=== PATIENT | male | born 1985 | race Caucasian/White ===

== ENCOUNTER 2020-12-10 18:47 | Inpatient (IN) | payer SELFPAY ==
[~2020-12-10] VITALS: Ht 167.6 cm; Wt 67.0 kg
[2020-12-10] MEDS ORDERED: IV NORMAL SALINE 1000ML BAG 1,000 ML IV ONE ×2 (19:00→20:45)
[2020-12-10 19:09] LABS: BASO # 0.2 x10^3/uL (0.0-0.2); BASO % 1 % (0-3); EOS # 0.1 x10^3/uL (0.0-0.7); EOS % 0 % (0-3); HEMATOCRIT 46.3 % (39.0-53.0); LYMPH % 57 % (24-48); MEAN CORPUSCULAR HEMOGLOBIN 34 pg (25-35); MEAN CORPUSCULAR HGB CONC 35 g/dL (31-37); MEAN CORPUSCULAR VOLUME 98 fL (79-100); MONO # 1.4 x10^3/uL (0.0-1.1); MONO % 7 % (0-9); NEUT # 6.7 x10^3/uL (1.8-7.7); NEUT % 35 % (31-73); PLATELET COUNT 391 x10^3/uL (140-400); RED BLOOD COUNT 4.74 x10^6/uL (4.30-5.70); RED CELL DISTRIBUTION WIDTH 13.1 % (11.5-14.5); WHITE BLOOD COUNT 19.4 x10^3/uL (4.0-11.0)
[2020-12-10 19:38] LABS: ACETAMIN < 2 mcg/ml (10-30); SALIC < 2.8 mg/dL (2.8-20.0)
[2020-12-10 19:40] LABS: ALBUMIN 4.2 g/dL (3.4-5.0); ALBUMIN/GLOBULIN RATIO 1.2 (1.0-1.7); CALCIUM 8.6 mg/dL (8.5-10.1); CREATININE 1.1 mg/dL (0.7-1.3); GFR 75.3; POTASSIUM 3.4 mmol/L (3.5-5.1); TOTAL BILIRUBIN 0.3 mg/dL (0.2-1.0); TOTAL PROTEIN 7.8 g/dL (6.4-8.2)
--- NOTE | 2020-12-10 19:52 | PHYS DOC ---
General Adult EDM: Chief Complaint: SUBSTANCE ABUSE HPI: HPI: Patient is a 35 year old male who presents with who states that tonight he took a shot of THC because the glass broke and he did not wanted to waste. He is h aving palpitations and in the ED his heart rate is in the 130s. Patient denies chest pain, shortness of air, abdominal pain, dizziness, headache, nausea, vomiting, diarrhea, focal weakness, numbness or tingling. He denies any pain at this time. He does admit to drinking alcohol. Review of Systems: Review of Systems: Constitutional: Denies fever or chills. [] Eyes: Denies change in visual acuity. [] HENT: Denies nasal congestion or sore throat. [] Respiratory: Denies cough or shortness of breath. [] Cardiovascular: Denies chest pain or edema. + Palpitations [] GI: Denies abdominal pain, nausea, vomiting, bloody stools or diarrhea. [] : Denies dysuria. [] Musculoskeletal: Denies back pain or joint pain. [] Integument: Denies rash. [] Neurologic: Denies headache, focal weakness or sensory changes. [] Endocrine: Denies polyuria or polydipsia. [] Lymphatic: Denies swollen glands. [] Psychiatric: Denies depression or anxiety. [] Heart Score: C/O Chest Pain: No Risk Factors: Risk Factors: DM, Current or recent (<one month) smoker, HTN, HLP, family history of CAD, obesity. Risk Scores: Score 0 - 3: 2.5% MACE over next 6 weeks - Discharge Home Score 4 - 6: 20.3% MACE over next 6 weeks - Admit for Clinical Observation Score 7 - 10: 72.7% MACE over next 6 weeks - Early Invasive Strategies Current Medications: Current Medications Medications (Trade) Dose Ordered Sig/Karon Start Time Stop Time Status Last Admin Dose Admin Sodium Chloride 1,000 ml @ 1,000 mls/hr 1X ONCE 12/10/20 19:00 12/10/20 19:59 12/10/20 19:20 1,000 MLS/HR Allergies: Allergies: Allergies Coded Allergies Type Severity Reaction Last Updated Verified No Known Drug Allergies 12/10/20 No Physical Exam: PE: Constitutional: Well developed, well nourished, no acute distress, non-toxic appearance. [] HENT: Normocephalic, atraumatic, bilateral external ears normal, oropharynx moist, no oral exudates, nose normal. [] Eyes: PERRLA, EOMI, conjunctiva normal, no discharge. [] Neck: Normal range of motion, no tenderness, supple, no stridor. [] Cardiovascular:Heart rate tachycardia regular rhythm, no murmur [] Lungs & Thorax: Bilateral breath sounds clear to auscultation [] Abdomen: Bowel sounds normal, soft, no tenderness, no masses, no pulsatile masses. [] Skin: Warm, dry, no erythema, no rash. [] Back: No tenderness, no CVA tenderness. [] Extremities: No tenderness, no cyanosis, no clubbing, ROM intact, no edema. [] Neurologic: Alert and oriented X 3, normal motor function, normal sensory func tion, no focal deficits noted. [] Psychologic: Affect normal, judgement normal, mood normal. [] Current Patient Data: Labs: Laboratory Tests Test 12/10/20 18:55 White Blood Count 19.4 x10^3/uL (4.0-11.0) H Red Blood Count 4.74 x10^6/uL (4.30-5.70) Hemoglobin 16.0 g/dL (13.0-17.5) Hematocrit 46.3 % (39.0-53.0) Mean Corpuscular Volume 98 fL (79-100) Mean Corpuscular Hemoglobin 34 pg (25-35) Mean Corpuscular Hemoglobin Concent 35 g/dL (31-37) Red Cell Distribution Width 13.1 % (11.5-14.5) Platelet Count 391 x10^3/uL (140-400) Neutrophils (%) (Auto) 35 % (31-73) Lymphocytes (%) (Auto) 57 % (24-48) H Monocytes (%) (Auto) 7 % (0-9) Eosinophils (%) (Auto) 0 % (0-3) Basophils (%) (Auto) 1 % (0-3) Neutrophils # (Auto) 6.7 x10^3/uL (1.8-7.7) Lymphocytes # (Auto) 11.0 x10^3/uL (1.0-4.8) H Monocytes # (Auto) 1.4 x10^3/uL (0.0-1.1) H Eosinophils # (Auto) 0.1 x10^3/uL (0.0-0.7) Basophils # (Auto) 0.2 x10^3/uL (0.0-0.2) Platelet Estimate Pending Sodium Level 141 mmol/L (136-145) Potassium Level 3.4 mmol/L (3.5-5.1) L Chloride Level 103 mmol/L (98-107) Carbon Dioxide Level 26 mmol/L (21-32) Anion Gap 12 (6-14) Blood Urea Nitrogen 19 mg/dL (8-26) Creatinine 1.1 mg/dL (0.7-1.3) Estimated GFR (Cockcroft-Gault) 75.3 BUN/Creatinine Ratio 17 (6-20) Glucose Level 120 mg/dL (70-99) H Calcium Level 8.6 mg/dL (8.5-10.1) Total Bilirubin 0.3 mg/dL (0.2-1.0) Aspartate Amino Transferase (AST) 161 U/L (15-37) H Alanine Aminotransferase (ALT) 245 U/L (16-63) H Alkaline Phosphatase 99 U/L (46-116) Troponin I Quantitative < 0.017 ng/mL (0.000-0.055) Total Protein 7.8 g/dL (6.4-8.2) Albumin 4.2 g/dL (3.4-5.0) Albumin/Globulin Ratio 1.2 (1.0-1.7) Salicylates Level < 2.8 mg/dL (2.8-20.0) L Salicylate Last Dose Date Salicylate Last Dose Time Acetaminophen Level < 2 mcg/ml (10-30) L Acetaminophen Last Dose Date Acetaminophen Last Dose Time Ethyl Alcohol Level 267 mg/dL (0-10) H Laboratory Tests 12/10/20 18:55 Laboratory Tests 12/10/20 18:55 EKG: EK and read by Dr. Dougherty as sinus tachycardia no STEMI Radiology/Procedures: Radiology/Procedures: [] Impression: [facility] [address] [place] [address] IMAGING REPORT Signed PATIENT: YARITZA HOPKINSCCOUNT: [id number] : 1985 LOCATION: ER AGE: 35 SEX: M EXAM STATUS: PRE ER ORD. PHYSICIAN: SINDY RODRIGUES APRN REASON: tachycardia PROCEDURE: PORTABLE CHEST 1V XR CHEST 1V CLINICAL INDICATIONS: Tachycardia COMPARISON: None available. Findings: No acute lung infiltrate or pleural effusion or pulmonary edema or lung mass or pneumothorax is seen. The heart size, pulmonary vasculature, mediastinum and both layton are unremarkable. IMPRESSION: No acute radiographic abnormality is seen. Electronically signed by: Nicolasa Clements MD (12/10/2020 8:03 PM) [id number] DICTATED and SIGNED BY: NICOLASA CLEMENTS MD DATE: 12/10/[id number] 0 [facility] [address] [place] [address] IMAGING REPORT Signed PATIENT: YARITZA HOPKINSCCOUNT: [id number] : 1985 LOCATION: ED HOLD AGE: 35 SEX: M EXAM STATUS: ADM IN ORD. PHYSICIAN: SINDY RODRIGUES APRN REASON: sepsis, elevated liver enzymes, OMNI 300 75 ML IV PROCEDURE: CT ABD PELV W/ IV CONTRST ONLY CT abdomen pelvis with contrast dated 12/10/2020. No comparison available. CLINICAL INDICATION: Sepsis and elevated liver enzymes. TECHNIQUE: Contiguous axial imaging the abdomen pelvis performed after the administration of 75 cc Omnipaque 300. One or more of the following individualized dose reduction techniques were utilized for this examination: 1. Automated exposure control 2. Adjustment of the mA and/or kV according to patient size 3. Use of iterative reconstruction technique FINDINGS: Limited images of lung bases show patchy and linear opacity in the dependent lower lobes. Heart size within normal limits. No pleural or pericardial effusion. Liver is of mild low density suggesting fatty infiltration. No apparent mass. There is some layering hyperdensity in the gallbladder suggestive of sludge. No calcific stone. Spleen is upper limits of normal in size. Pancreas, adrenal glands and kidneys are unremarkable. No hydronephrosis. Unopacified GI tract normal in caliber and contour. No focal bowel wall thickening. The appendix is normal in caliber. No ascites or lymphadenopathy. Abdominal aorta normal in caliber. Small periumbilical ventral hernia containing only fat. Images of pelvis show mildly distended urinary bladder. The prostate gland normal in size. No free fluid or pelvic lymphadenopathy. IMPRESSION: 1. No acute abnormality of abdomen or pelvis. Normal appendix. 2. Mild fatty infiltration of the liver. 3. Sludge-filled gallbladder. 4. Mild patchy increased density at both lung bases, atelectasis versus early pneumonia. Electronically signed by: Chapito Uriarte MD (12/11/2020 12:11 AM) [facility] [place] and SIGNED BY: CHAPITO URIARTE MD DATE: 12/11/20 [id number] [facility] [address] [place], [place] [id number] IMAGING REPORT Signed PATIENT: YARITZA HOPKINSCCOUNT: [id number] : 1985 LOCATION: ER AGE: 35 SEX: M EXAM STATUS: PRE ER ORD. PHYSICIAN: SINDY RODRIGUES APRN REASON: tachycardia PROCEDURE: PORTABLE CHEST 1V XR CHEST 1V CLINICAL INDICATIONS: Tachycardia COMPARISON: None available. Findings: No acute lung infiltrate or pleural effusion or pulmonary edema or lung mass or pneumothorax is seen. The heart size, pulmonary vasculature, mediastinum and both layton are unremarkable. IMPRESSION: No acute radiographic abnormality is seen. Electronically signed by: Nicolasa Clements MD (12/10/2020 8:03 PM) [id number] DICTATED and SIGNED BY: NICOLASA CLEMENTS MD DATE: 12/10/[id number] 0 Course & Med Decision Making: Course & Med Decision Making Pertinent Labs and Imaging studies reviewed. (See chart for details) COVID-19 CRITERIA: The patient was evaluated during the global COVID-19 pandemic, and that diagnosis was suspected/considered upon their initial presentation. Their evaluation, treatment and testing was consistent with current guidelines for patients who present with complaints or symptoms that may be related to COVID-19. See HPI. I have called and spoken to poison control who states to basically just observe the patient. Alert and oriented x4 but is drowsy. Speaks in full clear sentences. Lungs are clear all station all lobes. Skin pink warm and dry. EKG shows sinus tachycardia. Patient denies any pain, back pain, neck pain. He has full range of motion of his neck. White blood cell count elevated. Alcohol level is 267. Patient took the shot of THC at 1800 tonight. Lactic acid is 4.5. Patient is given 2 L normal saline and some Zosyn. Patient is admitted to Dr. Reardon. [] Evelia Disclaimer: Evelia Disclaimer: This electronic medical record was generated, in whole or in part, using a voice recognition dictation system. COVID-19 Patient Risks: Age 65 or older: No Sign of co-morbidity: Yes Exp to person + for COVID: No Exp to PUI: No Travel from affected area: No Lower respiratory symptoms: No Fever: No Other: Yes (SEPTIC) PPE Use: Full PPE with N95 mask or PAPR: Yes Date and Time of Reassessment Date: Dec 10, 2020 Time: 21:34 Fluid Challenge Is the fluid challenge complet: No IBW Target Volume Used: No BMI > 30: No Vital Signs Vital Signs: Vital Signs Date Time Temp Pulse Resp B/P (MAP) Pulse Ox O2 Delivery O2 Flow Rate FiO2 12/10/20 18:47 98.5 133 16 147/67 (93) 95 Room Air 98.5 Temperature Source: Oral Respirations Respiratory Effort: Normal Respiratory Pattern: Normal Cardiovascular Pulse Rhythm: Regular Heart: Nml rate, reg. rhythm Lung Sounds Breath Sounds: Clear Capillary Refil Capillary Refill: Rt Hand < 3 seconds Peripheral Pulse Pulse Location: Radial Pulse Strength: Normal (2+) Pulse Assessment Method: Monitor Integumentary Skin: Warm Skin Moisture: Dry Skin Turgor: Normal Skin Color: warm Fingernail Color: WNL Departure Departure Impression: Primary Impression: Tetrahydrocannabinol (THC) dependence Additional Impressions: Alcohol intoxication Qualified Codes: F10.920 - Alcohol use, unspecified with intoxication, uncomplicated Sepsis Qualified Codes: A41.9 - Sepsis, unspecified organism Disposition: ADMITTED INPATIENT Admitting Physician: DYANA Condition: STABLE SINDY RODRIGUES APRN Dec 10, 2020 19:52
--- NOTE | 2020-12-10 20:01 | EKG ---
[facility] [address] [place] [address] Test Date: 2020-12-10 Test Time: 18:51:55 Pat Name: OSCAR HOPKINS Department: Room: Gender: M [employer]argo Worker: : 1985 Requested By: SINDY RODRIGUES Order Number: [id number] Reading MD: Measurements Intervals [place] Rate: 143 P: 241 TX: 118 QRS: 49 QRSD: 86 T: 51 QT: 276 QTc: 431 Interpretive Statements SINUS TACHYCARDIA OTHERWISE NORMAL ECG RI6.02 No previous ECG available for comparison
--- NOTE | 2020-12-10 20:05 | RAD ---
XR CHEST 1V CLINICAL INDICATIONS: Tachycardia COMPARISON: None available. Findings: No acute lung infiltrate or pleural effusion or pulmonary edema or lung mass or pneumothora x is seen. The heart size, pulmonary vasculature, mediastinum and both layton are unremarkable. IMPRESSION: No acute radiographic abnormality is seen. Electronically signed by: Quinton Clements MD (12/10/2020 8:03 PM) [id number]
[2020-12-10 20:14] LABS: % ATYL 4 % (0-0); % LYMPHS 59 % (24-48); % MONOS 4 % (0-10); % SEGS 33 % (35-66)
[2020-12-10 20:15] LABS: PLT ESTIMATE ADEQUATE (ADEQUATE)
[2020-12-10] MEDS ORDERED: PIPERACILLIN/TAZOBACTAM 3.375 GM in IV NORMAL SALINE 50ML 50 ML IV ONE (20:45)
[2020-12-10 20:50] LABS: BILIRUBIN,URINE NEGATIVE (NEG); CLARITY,URINE CLEAR; COLOR,URINE YELLOW; NITRITE,URINE NEGATIVE (NEG); PH,URINE 5.5 (<5.0-8.0); PROTEIN,URINE NEGATIVE (NEG-TRACE); UROBILINOGEN,URINE 0.2 mg/dL (0.2 mg/dL)
[2020-12-10 20:59] LABS: BARBITURATES NEG (NEG); BENZODIAZEPINES NEG (NEG); CANNABINOIDS POS (NEG); COCAINE NEG (NEG); METHADONE NEG (NEG); OPIATES NEG (NEG); PHENCYCLIDINE NEG (NEG)
[2020-12-10 21:00] LABS: AMPHETAMINE/METHAMPHETAMINE NEG (NEG)
[2020-12-10 21:03] LABS: RBC,URINE OCC /HPF (0-2)
[2020-12-10 21:04] LABS: BACTERIA,URINE 0 /HPF (0-FEW)
[2020-12-10] MEDS ORDERED: CONTRAST GIVEN. MC PRN (22:30)
[2020-12-10] MEDS ORDERED: IOHEXOL 300 MG/ML 100ML VIAL. IV ONE (23:00)
[2020-12-10 23:30] LABS: ACETAMIN < 2 mcg/ml (10-30)
--- NOTE | 2020-12-11 00:10 | RAD ---
CT head without contrast dated 12/10/2020. No comparison available. CLINICAL INDICATION: Altered mental status. TECHNIQUE: Contiguous axial imaging the head was performed from skull base to vertex. No contrast administered. One or more of the following individualized dose reduction techniques were utilized for this examinat ion: 1. Automated exposure control 2. Adjustment of the mA and/or kV according to patient size 3. Use of iterative reconstruction technique. FINDINGS: Ventricles and sulci are within normal limits for age. No midline shift or mass effect. Brain parench yma is of normal attenuation. No hemorrhage or extra-axial collection. Posterior fossa and brainstem unremarkable. Mild mucosal thickening of the ethmoid air cells. The visualized paranasal sinuses and mastoid air ce lls are otherwise clear. No apparent calvarial abnormality. IMPRESSION: 1. No evidence of acute intracranial hemorrhage or mass. 2. Mild sinus disease. Electronically signed by: Chapito Uriarte MD (12/11/2020 12:08 AM) [facility]
--- NOTE | 2020-12-11 00:13 | RAD ---
CT abdomen pelvis with contrast dated 12/10/2020. No comparison available. CLINICAL INDICATION: Sepsis and elevated liver enzymes. TECHNIQUE: Contiguous axial imaging the abdomen pelvis performed after the administration of 75 cc Omnipaque 300 . One or more of the following individualized dose reduction techniques were utilized for this examinat ion: 1. Automated exposure control 2. Adjustment of the mA and/or kV according to patient size 3. Use of iterative reconstruction technique FINDINGS: Limited images of lung bases show patchy and linear opacity in the dependent lower lobes. Heart size within normal limits. No pleural or pericardial effusion. Liver is of mild low density suggesting fatty infiltration. No apparent mass. There is some layering hyperdensity in the gallbladder suggestive of sludge. No calcific stone. Spleen is upper limits of no rmal in size. Pancreas, adrenal glands and kidneys are unremarkable. No hydronephrosis. Unopacified GI tract normal in caliber and contour. No focal bowel wall thickening. The appendix is n ormal in caliber. No ascites or lymphadenopathy. Abdominal aorta normal in caliber. Small periumbilic al ventral hernia containing only fat. Images of pelvis show mildly distended urinary bladder. The prostate gland normal in size. No free fl uid or pelvic lymphadenopathy. IMPRESSION: 1. No acute abnormality of abdomen or pelvis. Normal appendix. 2. Mild fatty infiltration of the liver. 3. Sludge-filled gallbladder. 4. Mild patchy increased density at both lung bases, atelectasis versus early pneumonia. Electronically signed by: Chapito Uriarte MD (12/11/2020 12:11 AM) [facility]
[2020-12-11] MEDS ORDERED: VANCOMYCIN PER PHARMACY MC PRN (01:45)
[2020-12-11] MEDS ORDERED: VANCOMYCIN 1.75 GM in IV NORMAL SALINE 500ML BAG 500 ML IV ONE (02:30)
--- NOTE | 2020-12-11 05:45 | NUR ---
Pharmacy Vancomycin Dosing Note S:Consulted to monitor and dose vancomycin started 12/11/20. O:OSCAR HOPKINS is a 35 year old M with Sepsis . Height: 5 feet, 6 inches Weight: 67.0 kg [place] Body Weight: 63.80 Adjusted Body Weight: 65.08 Dosing Weight: Actual Other Antibiotics: LABS: Last BUN: 19 Last Creatinine: 1.1 Creatinine Clearance: 85 mL/min Last WBC: 19.4 Last Procalcitonin: Tmax (past 24 hours): Microbiology: I/O: Drug Levels: Last level: on at Last dose given 12/11/20 at 0300 Vancomycin Dosing: Loading Dose: 1750 mg x1 Dosing Weight: Actual Target Trough: 15-20 A: Based on: WT ADN CRCL P: 1. Begin Vancomycin 1000 mg IV q12h 2. Follow up Trough level on 12/12/20 at 1430 3. Pharmacy will continue to monitor, follow and adjust therapy as needed. ELISABETH SAEED RPH, 12/11/20 0545 Signed: 12/11/20 at 0545 by ELISABETH SAEED RPH PHA
--- NOTE | 2020-12-11 11:41 | PDOC1 ---
History and Physical Date of Service: DOS: DATE: 12/11/20 TIME: 11:36 History of Present Illness: HPI: 35 year old male who presents with who states that tonight he took a shot of THC because the glass broke and he did not wanted to waste. He is having palpitations and in the ED his heart rate is in the 130s. Patient denies chest pain, shortness of air, abdominal pain, dizziness, headache, nausea, vomiting, diarrhea, focal weakness, numbness or tingling. He denies any pain at this time. He does admit to drinking alcohol. ED course: poison control contacted and recommended to just observe the patient. Alert and oriented x4 but is drowsy. Speaks in full clear sentences. Lungs are clear all station all lobes. Skin pink warm and dry. EKG shows sinus tachycardia. Patient denies any pain, back pain, neck pain. He has full range of motion of his neck. White blood cell count elevated. Alcohol level is 267. Patient took the shot of THC at 1800 tonight. Lactic acid is 4.5. Patient is given 2 L normal saline and some Zosyn Past Medical/Surgical History: PMH/PSH: Alcohol and cannabinoid abuse Allergies: Allergies: Coded Allergies: No Known Drug Allergies (Unverified , 12/10/20) Family History: Family History: Reviewed with no relevant findings Social History: Social History: Alcohol and cannabinoid abuse Current Medications: Current Medications Current Medications Sodium Chloride 1,000 ml @ 1,000 mls/hr 1X ONCE IV Last administered on 12/10/20at 19:20; Start 12/10/20 at 19:00; Stop 12/10/20 at 19:59; Status DC Sodium Chloride 1,000 ml @ 1,000 mls/hr 1X ONCE IV Last administered on 12/10/20at 21:01; Start 12/10/20 at 20:45; Stop 12/10/20 at 21:44; Status DC Piperacillin Sod/ Tazobactam Sod 3.375 gm/Sodium Chloride 50 ml @ 100 mls/hr 1X ONCE IV Last administered on 12/10/20at 21:01; Start 12/10/20 at 20:45; Stop 12/10/20 at 21:14; Status DC Iohexol (Omnipaque 300 Mg/ml) 75 ml 1X ONCE IV ; Start 12/10/20 at 23:00; Stop 12/10/20 at 23:01; Status DC Info (CONTRAST GIVEN -- Rx MONITORING) 1 each PRN DAILY PRN MC SEE COMMENTS; Start 12/10/20 at 22:30; Stop 12/12/20 at 22:29 Vancomycin HCl (Vanco Per Pharmacy) 1 each PRN DAILY PRN MC SEE COMMENTS Last administered on 12/11/20at 05:44; Start 12/11/20 at 01:45 Vancomycin HCl 1.75 gm/Sodium Chloride 500 ml @ 250 mls/hr 1X ONCE IV Last administered on 12/11/20at 03:17; Start 12/11/20 at 02:30; Stop 12/11/20 at 04 :29; Status DC Vancomycin HCl 1 gm/Sodium Chloride 250 ml @ 250 mls/hr Q12H IV ; Start 12/11/20 at 15:00 Vancomycin HCl (Vancomycin Trough Level) 1 each 1X ONCE MC ; Start 12/12/20 at 14:30; Stop 12/12/20 at 14:31 ROS: Review of Systems Review of System REVIEW OF SYSTEMS: GENERAL: Denies weakness SKIN: No bruising, hair changes or rashes. EYES: No blurred, double or loss of vision. NOSE AND THROAT: No history of nosebleeds, hoarseness or sore throat. HEART: No history of palpitations, chest pain or shortness of breath on exertion. LUNGS: Denies cough, hemoptysis, wheezing or shortness of breath. GASTROINTESTINAL: Denies changes in appetite, nausea, vomiting, diarrhea or constipation. GENITOURINARY: No history of frequency, urgency, hesitancy or nocturia. NEUROLOGIC: Denies history of numbness, tingling, or tremor. PSYCHIATRIC: No history of panic, anxiety or depression. ENDOCRINE: No history of heat or cold intolerance, polyuria or polydipsia. EXTREMITIES: Denies joint pain, pain on walking or stiffness. Physical Exam: Vital Signs: Vital Signs Date Time Temp Pulse Resp B/P (MAP) Pulse Ox O2 Delivery O2 Flow Rate FiO2 12/11/20 07:35 78 133/67 (89) 97 12/10/20 21:50 20 Room Air 12/10/20 18:47 98.5 98.5 Physcial Exam: GEN: No apparent distress. Alert and oriented HEENT: Normal cephalic, atraumatic, external auditory canals are patent EYES: Extraocular muscles are intact, pupil are equally round and reactive to light and accommodation MUSCULOSKELETAL: Well developed , well nourished, good range of motion ENDOCRINE: No thyromegaly was palpated LYMPHATICS: No cervical chain or axillary nodes were noted HEMATOPOIETIC: No bruising NECK: Supple, no JVD, no thyromegaly was noted LUNGS: Clear to auscultation in all lung castro without rhonchi or wheezing HEART: RRR, S!, S2 present. Peripheral pulses intact, no obvious murmurs noted ABDOMEN: Soft, nontender. Positive bowel sounds, no organomegaly, normal bowel sounds EXTREMITIES: Without clubbing, cyanosis, or edema. Pedal pulses intact. Negative Homans sign NEUROLOGIC: Normal speech and tone. A&O x 3, moves all extremities, no obvious focal deficits PSYCHIATRIC: Normal affect, normal mood. Stable SKIN: No ulcerations or rashes, good skin turgor, no jaundice VASCULAR: Good capillary refill, neurovascular bundle appears to be intact Labs: Labs: Laboratory Tests Test 12/10/20 18:55 12/10/20 20:36 12/10/20 23:00 White Blood Count 19.4 x10^3/uL (4.0-11.0) Red Blood Count 4.74 x10^6/uL (4.30-5.70) Hemoglobin 16.0 g/dL (13.0-17.5) Hematocrit 46.3 % (39.0-53.0) Mean Corpuscular Volume 98 fL (79-100) Mean Corpuscular Hemoglobin 34 pg (25-35) Mean Corpuscular Hemoglobin Concent 35 g/dL (31-37) Red Cell Distribution Width 13.1 % (11.5-14.5) Platelet Count 391 x10^3/uL (140-400) Neutrophils (%) (Auto) 35 % (31-73) Lymphocytes (%) (Auto) 57 % (24-48) Monocytes (%) (Auto) 7 % (0-9) Eosinophils (%) (Auto) 0 % (0-3) Basophils (%) (Auto) 1 % (0-3) Neutrophils # (Auto) 6.7 x10^3/uL (1.8-7.7) Lymphocytes # (Auto) 11.0 x10^3/uL (1.0-4.8) Monocytes # (Auto) 1.4 x10^3/uL (0.0-1.1) Eosinophils # (Auto) 0.1 x10^3/uL (0.0-0.7) Basophils # (Auto) 0.2 x10^3/uL (0.0-0.2) Segmented Neutrophils % 33 % (35-66) Lymphocytes % 59 % (24-48) Atypical Lymphocytes % (Manual) 4 % (0-0) Monocytes % 4 % (0-10) Platelet Estimate Adequate (ADEQUATE) Sodium Level 141 mmol/L (136-145) Potassium Level 3.4 mmol/L (3.5-5.1) Chloride Level 103 mmol/L (98-107) Carbon Dioxide Level 26 mmol/L (21-32) Anion Gap 12 (6-14) Blood Urea Nitrogen 19 mg/dL (8-26) Creatinine 1.1 mg/dL (0.7-1.3) Estimated GFR (Cockcroft-Gault) 75.3 BUN/Creatinine Ratio 17 (6-20) Glucose Level 120 mg/dL (70-99) Lactic Acid Level 4.5 mmol/L (0.4-2.0) 2.0 mmol/L (0.4-2.0) Calcium Level 8.6 mg/dL (8.5-10.1) Magnesium Level 2.0 mg/dL (1.8-2.4) Total Bilirubin 0.3 mg/dL (0.2-1.0) Aspartate Amino Transf (AST/SGOT) 161 U/L (15-37) Alanine Aminotransferase (ALT/SGPT) 245 U/L (16-63) Alkaline Phosphatase 99 U/L (46-116) Creatine Kinase 138 U/L (39-308) Troponin I Quantitative < 0.017 ng/mL (0.000-0.055) Total Protein 7.8 g/dL (6.4-8.2) Albumin 4.2 g/dL (3.4-5.0) Albumin/Globulin Ratio 1.2 (1.0-1.7) Lipase 82 U/L (73-393) Salicylates Level < 2.8 mg/dL (2.8-20.0) Salicylate Last Dose Date Salicylate Last Dose Time Acetaminophen Level < 2 mcg/ml (10-30) < 2 mcg/ml (10-30) Acetaminophen Last Dose Date Acetaminophen Last Dose Time Ethyl Alcohol Level 267 mg/dL (0-10) Urine Collection Type Unknown Urine Color Yellow Urine Clarity Clear Urine pH 5.5 (<5.0-8.0) Urine Specific [place] <=1.005 (1.000-1.030) Urine Protein Negative mg/dL (NEG-TRACE) Urine Glucose (UA) Negative mg/dL (NEG) Urine Ketones (Stick) Negative mg/dL (NEG) Urine Blood Negative (NEG) Urine Nitrite Negative (NEG) Urine Bilirubin Negative (NEG) Urine Urobilinogen Dipstick 0.2 mg/dL (0.2 mg/dL) Urine Leukocyte Esterase Negative (NEG) Urine RBC Occ /HPF (0-2) Urine WBC 1-4 /HPF (0-4) Urine Bacteria 0 /HPF (0-FEW) Urine Mucus Slight /LPF Urine Opiates Screen Neg (NEG) Urine Methadone Screen Neg (NEG) Urine Barbiturates Neg (NEG) Urine Phencyclidine Screen Neg (NEG) Urine Amphetamine/Methamphetamine Neg (NEG) Urine Benzodiazepines Screen Neg (NEG) Urine Cocaine Screen Neg (NEG) Urine Cannabinoids Screen Pos (NEG) Urine Ethyl Alcohol Pos (NEG) Laboratory Tests Test 12/10/20 18:55 12/10/20 20:36 12/10/20 23:00 White Blood Count 19.4 x10^3/uL (4.0-11.0) Red Blood Count 4.74 x10^6/uL (4.30-5.70) Hemoglobin 16.0 g/dL (13.0-17.5) Hematocrit 46.3 % (39.0-53.0) Mean Corpuscular Volume 98 fL (79-100) Mean Corpuscular Hemoglobin 34 pg (25-35) Mean Corpuscular Hemoglobin Concent 35 g/dL (31-37) Red Cell Distribution Width 13.1 % (11.5-14.5) Platelet Count 391 x10^3/uL (140-400) Neutrophils (%) (Auto) 35 % (31-73) Lymphocytes (%) (Auto) 57 % (24-48) Monocytes (%) (Auto) 7 % (0-9) Eosinophils (%) (Auto) 0 % (0-3) Basophils (%) (Auto) 1 % (0-3) Neutrophils # (Auto) 6.7 x10^3/uL (1.8-7.7) Lymphocytes # (Auto) 11.0 x10^3/uL (1.0-4.8) Monocytes # (Auto) 1.4 x10^3/uL (0.0-1.1) Eosinophils # (Auto) 0.1 x10^3/uL (0.0-0.7) Basophils # (Auto) 0.2 x10^3/uL (0.0-0.2) Segmented Neutrophils % 33 % (35-66) Lymphocytes % 59 % (24-48) Atypical Lymphocytes % (Manual) 4 % (0-0) Monocytes % 4 % (0-10) Platelet Estimate Adequate (ADEQUATE) Sodium Level 141 mmol/L (136-145) Potassium Level 3.4 mmol/L (3.5-5.1) Chloride Level 103 mmol/L (98-107) Carbon Dioxide Level 26 mmol/L (21-32) Anion Gap 12 (6-14) Blood Urea Nitrogen 19 mg/dL (8-26) Creatinine 1.1 mg/dL (0.7-1.3) Estimated GFR (Cockcroft-Gault) 75.3 BUN/Creatinine Ratio 17 (6-20) Glucose Level 120 mg/dL (70-99) Lactic Acid Level 4.5 mmol/L (0.4-2.0) 2.0 mmol/L (0.4-2.0) Calcium Level 8.6 mg/dL (8.5-10.1) Magnesium Level 2.0 mg/dL (1.8-2.4) Total Bilirubin 0.3 mg/dL (0.2-1.0) Aspartate Amino Transf (AST/SGOT) 161 U/L (15-37) Alanine Aminotransferase (ALT/SGPT) 245 U/L (16-63) Alkaline Phosphatase 99 U/L (46-116) Creatine Kinase 138 U/L (39-308) Troponin I Quantitative < 0.017 ng/mL (0.000-0.055) Total Protein 7.8 g/dL (6.4-8.2) Albumin 4.2 g/dL (3.4-5.0) Albumin/Globulin Ratio 1.2 (1.0-1.7) Lipase 82 U/L (73-393) Salicylates Level < 2.8 mg/dL (2.8-20.0) Salicylate Last Dose Date Salicylate Last Dose Time Acetaminophen Level < 2 mcg/ml (10-30) < 2 mcg/ml (10-30) Acetaminophen Last Dose Date Acetaminophen Last Dose Time Ethyl Alcohol Level 267 mg/dL (0-10) Urine Collection Type Unknown Urine Color Yellow Urine Clarity Clear Urine pH 5.5 (<5.0-8.0) Urine Specific [place] <=1.005 (1.000-1.030) Urine Protein Negative mg/dL (NEG-TRACE) Urine Glucose (UA) Negative mg/dL (NEG) Urine Ketones (Stick) Negative mg/dL (NEG) Urine Blood Negative (NEG) Urine Nitrite Negative (NEG) Urine Bilirubin Negative (NEG) Urine Urobilinogen Dipstick 0.2 mg/dL (0.2 mg/dL) Urine Leukocyte Esterase Negative (NEG) Urine RBC Occ /HPF (0-2) Urine WBC 1-4 /HPF (0-4) Urine Bacteria 0 /HPF (0-FEW) Urine Mucus Slight /LPF Urine Opiates Screen Neg (NEG) Urine Methadone Screen Neg (NEG) Urine Barbiturates Neg (NEG) Urine Phencyclidine Screen Neg (NEG) Urine Amphetamine/Methamphetamine Neg (NEG) Urine Benzodiazepines Screen Neg (NEG) Urine Cocaine Screen Neg (NEG) Urine Cannabinoids Screen Pos (NEG) Urine Ethyl Alcohol Pos (NEG) Images: Images PROCEDURE: CT HEAD WO CONTRAST IMPRESSION: 1. No evidence of acute intracranial hemorrhage or mass. 2. Mild sinus disease. PROCEDURE: CT ABD PELV W/ IV CONTRST ONLY IMPRESSION: 1. No acute abnormality of abdomen or pelvis. Normal appendix. 2. Mild fatty infiltration of the liver. 3. Sludge-filled gallbladder. 4. Mild patchy increased density at both lung bases, atelectasis versus early pneumonia. Assessment/Plan Assessment/Plan Sepsis Atypical pneumonia, possible gram-negative organisms Acute alcohol and THC intoxication Mild hypokalemia Transaminitis Lactic acidosis Reactive leukocytosis Admit to medicine for observation PAT consult Continue IV fluids Continue empiric IV antibiotics [] for DVT prophylaxis [] GI prophylaxis ADA diet Full code Discussed with RN and SW Disposition [] Surrogate decision maker is [] Smoking cessation: Total time spent was > 12 minutes in face to face juvenile counselor ing. Patient has not decided whether or not to consider nicotine patches/gum or to start on Varnicline when discharged Justifications for Admission Other Justification RENE PINON MD Dec 11, 2020 11:41
--- NOTE | 2020-12-11 13:57 | PDOC ---
Infectious Disease Note Vital Sign Vital Signs Vital Signs Date Time Temp Pulse Resp B/P (MAP) Pulse Ox O2 Delivery O2 Flow Rate FiO2 12/11/20 11:35 74 16 112/65 (81) 96 Room Air 12/10/20 18:47 98.5 98.5 Labs Lab Laboratory Tests Test 12/10/20 18:55 12/10/20 20:36 12/10/20 23:00 12/11/20 07:15 White Blood Count 19.4 x10^3/uL (4.0-11.0) Red Blood Count 4.74 x10^6/uL (4.30-5.70) Hemoglobin 16.0 g/dL (13.0-17.5) Hematocrit 46.3 % (39.0-53.0) Mean Corpuscular Volume 98 fL (79-100) Mean Corpuscular Hemoglobin 34 pg (25-35) Mean Corpuscular Hemoglobin Concent 35 g/dL (31-37) Red Cell Distribution Width 13.1 % (11.5-14.5) Platelet Count 391 x10^3/uL (140-400) Neutrophils (%) (Auto) 35 % (31-73) Lymphocytes (%) (Auto) 57 % (24-48) Monocytes (%) (Auto) 7 % (0-9) Eosinophils (%) (Auto) 0 % (0-3) Basophils (%) (Auto) 1 % (0-3) Neutrophils # (Auto) 6.7 x10^3/uL (1.8-7.7) Lymphocytes # (Auto) 11.0 x10^3/uL (1.0-4.8) Monocytes # (Auto) 1.4 x10^3/uL (0.0-1.1) Eosinophils # (Auto) 0.1 x10^3/uL (0.0-0.7) Basophils # (Auto) 0.2 x10^3/uL (0.0-0.2) Segmented Neutrophils % 33 % (35-66) Lymphocytes % 59 % (24-48) Atypical Lymphocytes % (Manual) 4 % (0-0) Monocytes % 4 % (0-10) Platelet Estimate Adequate (ADEQUATE) Sodium Level 141 mmol/L (136-145) Potassium Level 3.4 mmol/L (3.5-5.1) Chloride Level 103 mmol/L (98-107) Carbon Dioxide Level 26 mmol/L (21-32) Anion Gap 12 (6-14) Blood Urea Nitrogen 19 mg/dL (8-26) Creatinine 1.1 mg/dL (0.7-1.3) Estimated GFR (Cockcroft-Gault) 75.3 BUN/Creatinine Ratio 17 (6-20) Glucose Level 120 mg/dL (70-99) Lactic Acid Level 4.5 mmol/L (0.4-2.0) 2.0 mmol/L (0.4-2.0) Calcium Level 8.6 mg/dL (8.5-10.1) Magnesium Level 2.0 mg/dL (1.8-2.4) Total Bilirubin 0.3 mg/dL (0.2-1.0) Aspartate Amino Transf (AST/SGOT) 161 U/L (15-37) Alanine Aminotransferase (ALT/SGPT) 245 U/L (16-63) Alkaline Phosphatase 99 U/L (46-116) Creatine Kinase 138 U/L (39-308) Troponin I Quantitative < 0.017 ng/mL (0.000-0.055) Total Protein 7.8 g/dL (6.4-8.2) Albumin 4.2 g/dL (3.4-5.0) Albumin/Globulin Ratio 1.2 (1.0-1.7) Lipase 82 U/L (73-393) Salicylates Level < 2.8 mg/dL (2.8-20.0) Salicylate Last Dose Date Salicylate Last Dose Time Acetaminophen Level < 2 mcg/ml (10-30) < 2 mcg/ml (10-30) Acetaminophen Last Dose Date Acetaminophen Last Dose Time Ethyl Alcohol Level 267 mg/dL (0-10) Urine Collection Type Unknown Urine Color Yellow Urine Clarity Clear Urine pH 5.5 (<5.0-8.0) Urine Specific [place] <=1.005 (1.000-1.030) Urine Protein Negative mg/dL (NEG-TRACE) Urine Glucose (UA) Negative mg/dL (NEG) Urine Ketones (Stick) Negative mg/dL (NEG) Urine Blood Negative (NEG) Urine Nitrite Negative (NEG) Urine Bilirubin Negative (NEG) Urine Urobilinogen Dipstick 0.2 mg/dL (0.2 mg/dL) Urine Leukocyte Esterase Negative (NEG) Urine RBC Occ /HPF (0-2) Urine WBC 1-4 /HPF (0-4) Urine Bacteria 0 /HPF (0-FEW) Urine Mucus Slight /LPF Urine Opiates Screen Neg (NEG) Urine Methadone Screen Neg (NEG) Urine Barbiturates Neg (NEG) Urine Phencyclidine Screen Neg (NEG) Urine Amphetamine/Methamphetamine Neg (NEG) Urine Benzodiazepines Screen Neg (NEG) Urine Cocaine Screen Neg (NEG) Urine Cannabinoids Screen Pos (NEG) Urine Ethyl Alcohol Pos (NEG) SARS-CoV-2 RNA (MADIHA) Negative (Negative) Objective Assessment Leukocytosis Lactic acidosis Aspiration Mild sinus disease Alcohol and THC intoxication Vapes h/x IVDU Hepatitis C Homeless Plan Plan of Care Vanc and Zosyn Repeat labs in am Monitor WBC trend and temp Maintain aspiration precautions Discussed with nursing Thank you [phone] Feeling better. Very hungry. H/o Staph skin infection Substance abuse Cont Vanc and Zosyn for now Attending Co-Sign Attending Co-Sign The patient was seen and interviewed as well as examined at the bedside. The chart was reviewed. The case was discussed. Agree with the plan of care. JACKIE BROOKS APRN Dec 11, 2020 13:57 TANIA WILLIAM MD Dec 11, 2020 14:40
[2020-12-11] MEDS: PIPERACILLIN/TAZOBACTAM 3.375 GM in IV NORMAL SALINE 50ML 50 ML IV SCH ×2 (14:21→18:09)
[2020-12-11] MEDS: ACETAMINOPHEN 325 MG TABLET. PO PRN ×2 (14:26→20:05)
--- NOTE | 2020-12-11 15:08 | CONS ---
DATE OF CONSULTATION: 12/11/2020 REFERRING PHYSICIAN: Ashwini Dumont APRN REASON FOR CONSULTATION: Sepsis. HISTORY OF PRESENT ILLNESS: This patient is a 35-year-old male who presented with complaints of heart palpitations and shortness of air. He says he was having an emotional day yesterday and had been drinking and vaping with THC. In the process, he inadvertently broke one of the THC cartridges. He did not want to waste it, so he ingested the full amount. On arrival to the ER, he was found to have an elevated white blood cell count of 19,400, segs 33%, lymphocytes 59%. He had a lactic acid of 4.5 and transaminitis. Imaging of head, abdomen and pelvis showed mild sinus disease; mild fatty infiltration of the liver; sludge-filled gallbladder; mild patchy increased density at both lung bases, atelectasis versus early pneumonia. He was treated with supplemental oxygen, vancomycin and Zosyn. The patient is feeling a little bit better. However, he complains of a headache and mild sinus congestion. He has a chronic cough with phlegm production in the morning, which he contributes to smoking. He denies fevers, chills, sweats or body aches. He is homeless. He has a history of hepatitis C and has a history of IV drug use with a shared needles. He reports having a negative HIV testing recently. He denies time in senior care. He reports falling a few months ago injuring his right knee that still hurts. He denies swelling or redness of the knee. PAST MEDICAL HISTORY: Hepatitis C, IV drug use, history of falls. PAST SURGICAL HISTORY: Right arm fracture repair with hardware and graft. FAMILY HISTORY: Positive for congestive heart failure. SOCIAL HISTORY: The patient is homeless. Aside from aunt that lives in [place], he does not have any family in the area. He has a history of IV drug use with shared needles. He drinks alcohol and vapes with THC. ALLERGIES: No known drug allergies. MEDICATIONS: Vancomycin, one-time dose of Zosyn. Other medications are available and have been reviewed on the OCT. REVIEW OF SYSTEMS: Per HPI, otherwise all other review of systems are negative. PHYSICAL EXAMINATION: VITAL SIGNS: Temperature is 98.5, blood pressure 112/65, heart rate 74, respiratory rate 16, pulse oximetry 96% on room air. GENERAL: The patient is in bed, alert, no distress. HEENT: Pupils equally round. Normal conjunctivae. Oropharynx pink, moist and edentulous. Bacterial overgrowth on tongue. NECK: Supple. LUNGS: Clear to auscultation. No accessory muscle use. HEART: Normal S1, S2 regular. ABDOMEN: Nondistended, soft, nontender with bowel sounds present. EXTREMITIES: No gross edema or cyanosis. SKIN: Warm to touch. No signs of rash. Multiple tattoos. NEUROLOGIC: Alert and answering questions appropriately. LABORATORY DATA: On admission, WBC 19.4, hemoglobin 16.0, platelets 391,000, segs 33%, lymphocytes 59%, atypical lymphs 4%. Sodium 141, potassium 3.4, creatinine 1.1, glucose 120. Total bilirubin 0.3, AST 161, ALT 245, albumin 4.2. Troponin less than 0.017. Creatine kinase 138, lipase 82. Lactic acid 2.0 from 4.5. Urinalysis unremarkable for infection. COVID negative. IMAGING: Per HPI. ASSESSMENT: 1. Leukocytosis. 2. Lactic acidosis. 3. Possible aspiration. 4. Mild sinus disease. 5. Alcohol and THC intoxication. 6. Vapes. 7. History of intravenous drug use. 8. Hepatitis C. 9. Homeless. PLAN: 1. Continue the vancomycin and Zosyn. 2. Repeat labs in the morning. 3. Monitor WBC trend and temperature. 4. Maintain aspiration precautions. 5. Discussed with nursing. Thank you Ashwini Dumont APRN for asking us to participate in this patient's care. Should you have further questions or concerns, please call. RONNY/MIKE/MODE DR: RONNY/selina TID: [id number]
[2020-12-11 15:43] VITALS: BP 142/85
[2020-12-11] MEDS: VANCOMYCIN 1 GM in IV NORMAL SALINE 250ML 250 ML IV SCH (17:00)
[2020-12-11 19:20] VITALS: BP 138/94
[2020-12-11] MEDS ORDERED: NICOTINE POLACRILEX 2MG GUM PACKAGE of 12. BC PRN (20:00)
[2020-12-11] MEDS ORDERED: NICOTINE 14MG PATCH. TD PRN (20:00)
[2020-12-11] MEDS ORDERED: diphenhydrAMINE 50 MG/ML VIAL IVP PRN (20:00)
[2020-12-11] MEDS: HALOPERIDOL LACTATE 5 MG/ML VIAL. IVP PRN (21:05)
--- NOTE | 2020-12-11 22:12 | NUR ---
1929 patient agitated, assessment done, Dr Leon contacted and informed regarding elevated CIWA/alcohol withdrawal scores and patient stated he took marijuana/weeds yesterday, new order made , patient informed and agreed, ativan given ,see EMAR per alcohol withdrawal protocol.
[2020-12-11 23:20] VITALS: BP 128/88
[2020-12-12] MEDS: PIPERACILLIN/TAZOBACTAM 3.375 GM in IV NORMAL SALINE 50ML 50 ML IV SCH ×5 (00:09→23:00)
[2020-12-12 02:45] VITALS: BP 124/78
[2020-12-12] MEDS: VANCOMYCIN 1 GM in IV NORMAL SALINE 250ML 250 ML IV SCH (03:51)
[2020-12-12 06:09] LABS: BASO % 1 % (0-3); EOS # 0.5 x10^3/uL (0.0-0.7); EOS % 9 % (0-3); HEMATOCRIT 40.2 % (39.0-53.0); HEMOGLOBIN 13.8 g/dL (13.0-17.5); LYMPH % 38 % (24-48); MEAN CORPUSCULAR HEMOGLOBIN 34 pg (25-35); MEAN CORPUSCULAR HGB CONC 34 g/dL (31-37); MEAN CORPUSCULAR VOLUME 99 fL (79-100); MONO # 0.4 x10^3/uL (0.0-1.1); MONO % 7 % (0-9); NEUT # 2.4 x10^3/uL (1.8-7.7); NEUT % 45 % (31-73); PLATELET COUNT 191 x10^3/uL (140-400); RED BLOOD COUNT 4.08 x10^6/uL (4.30-5.70); RED CELL DISTRIBUTION WIDTH 13.3 % (11.5-14.5); WHITE BLOOD COUNT 5.3 x10^3/uL (4.0-11.0)
[2020-12-12 06:29] LABS: ALBUMIN 2.8 g/dL (3.4-5.0); CALCIUM 7.8 mg/dL (8.5-10.1); CREATININE 0.9 mg/dL (0.7-1.3); POTASSIUM 3.6 mmol/L (3.5-5.1); TOTAL BILIRUBIN 0.7 mg/dL (0.2-1.0); TOTAL PROTEIN 5.6 g/dL (6.4-8.2)
[2020-12-12 07:00] VITALS: BP 132/80
--- NOTE | 2020-12-12 08:26 | PDOC ---
[employer] PROGRESS NOTE Date of Service DOS: DATE: 12/12/20 TIME: 08:22 Chief Complaint Chief Complaint Sepsis Atypical pneumonia, possible gram-negative organisms Acute alcohol and THC intoxication Mild hypokalemia Transaminitis Lactic acidosis Reactive leukocytosis Admit to medicine for observation PAT consult Continue IV fluids Continue empiric IV antibiotics History of Present Illness History of Present Illness 35 year old male who presents with who states that tonight he took a shot of THC because the glass broke and he did not wanted to waste. He is having palpitations and in the ED his heart rate is in the 130s. Patient denies chest pain, shortness of air, abdominal pain, dizziness, headache, nausea, vomiting, diarrhea, focal weakness, numbness or tingling. He denies any pain at this time. He does admit to drinking alcohol. ED course: poison control contacted and recommended to just observe the patient. Alert and oriented x4 but is drowsy. Speaks in full clear sentences. Lungs are clear all station all lobes. Skin pink warm and dry. EKG shows sinus tachycardia. Patient denies any pain, back pain, neck pain. He has full range of motion of his neck. White blood cell count elevated. Alcohol level is 267. Patient took the shot of THC at 1800 tonight. Lactic acid is 4.5. Patient is given 2 L normal saline and some Zosyn 12/12/2020 Afebrile, breathing room air. Lactic acidosis and leukocytosis have resolved. COVID-19 negative. Will continue Zosyn; DC vancomycin. Blood cultures still pending. Patient does report multiple episodes of diarrhea today. Will obtain C. difficile. I imagine he may discharge once blood cultures have resulted negative, given his medical history. Vitals/I&O Vitals/I&O: Vital Signs Date Time Temp Pulse Resp B/P (MAP) Pulse Ox O2 Delivery O2 Flow Rate FiO2 12/12/20 07:00 97.8 78 18 132/80 (97) 97 Room Air 97.8 I & O 12/11/20 12/11/20 12/12/20 15:00 23:00 07:00 Intake Total 360 ml Balance 360 ml Physical Exam General: Alert, Oriented X3 Heart: Regular rate Lungs: Clear Abdomen: Soft, No tenderness Extremities: No clubbing, No cyanosis Skin: No rashes, No breakdown Labs Labs: Laboratory Tests Test 12/12/20 05:25 12/12/20 05:28 White Blood Count 5.3 x10^3/uL (4.0-11.0) Red Blood Count 4.08 x10^6/uL (4.30-5.70) Hemoglobin 13.8 g/dL (13.0-17.5) Hematocrit 40.2 % (39.0-53.0) Mean Corpuscular Volume 99 fL (79-100) Mean Corpuscular Hemoglobin 34 pg (25-35) Mean Corpuscular Hemoglobin Concent 34 g/dL (31-37) Red Cell Distribution Width 13.3 % (11.5-14.5) Platelet Count 191 x10^3/uL (140-400) Neutrophils (%) (Auto) 45 % (31-73) Lymphocytes (%) (Auto) 38 % (24-48) Monocytes (%) (Auto) 7 % (0-9) Eosinophils (%) (Auto) 9 % (0-3) Basophils (%) (Auto) 1 % (0-3) Neutrophils # (Auto) 2.4 x10^3/uL (1.8-7.7) Lymphocytes # (Auto) 2.0 x10^3/uL (1.0-4.8) Monocytes # (Auto) 0.4 x10^3/uL (0.0-1.1) Eosinophils # (Auto) 0.5 x10^3/uL (0.0-0.7) Basophils # (Auto) 0.0 x10^3/uL (0.0-0.2) Sodium Level 144 mmol/L (136-145) Potassium Level 3.6 mmol/L (3.5-5.1) Chloride Level 110 mmol/L (98-107) Carbon Dioxide Level 28 mmol/L (21-32) Anion Gap 6 (6-14) Blood Urea Nitrogen 11 mg/dL (8-26) Creatinine 0.9 mg/dL (0.7-1.3) Estimated GFR (Cockcroft-Gault) 95.0 BUN/Creatinine Ratio 12 (6-20) Glucose Level 99 mg/dL (70-99) Calcium Level 7.8 mg/dL (8.5-10.1) Total Bilirubin 0.7 mg/dL (0.2-1.0) Aspartate Amino Transf (AST/SGOT) 94 U/L (15-37) Alanine Aminotransferase (ALT/SGPT) 154 U/L (16-63) Alkaline Phosphatase 74 U/L (46-116) Total Protein 5.6 g/dL (6.4-8.2) Albumin 2.8 g/dL (3.4-5.0) Albumin/Globulin Ratio 1.0 (1.0-1.7) Assessment and Plan Assessmemt and Plan Problems Medical Problems: (1) Alcohol intoxication Status: Acute (2) Sepsis Status: Acute (3) Tetrahydrocannabinol (THC) dependence Status: Acute Comment Review of Relevant I have reviewed the following items guillermina (where applicable) has been applied. Medications: Current Medications Medications (Trade) Dose Ordered Sig/Karon Route PRN Reason Start Time Stop Time Status Last Admin Dose Admin Vancomycin HCl 1 gm/Sodium Chloride 250 ml @ 250 mls/hr Q12H IV 12/11/20 15:00 12/12/20 03:51 Acetaminophen (Tylenol) 650 mg PRN Q6HRS PRN PO MILD PAIN / TEMP > 100.3'F 12/11/20 13:15 12/11/20 20:05 Piperacillin Sod/ Tazobactam Sod 3.375 gm/Sodium Chloride 50 ml @ 100 mls/hr Q6HRS IV 12/11/20 13:00 12/12/20 05:19 Lorazepam (Ativan Inj) 2 mg PRN Q1HR PRN IV For CIWA 8-14 12/11/20 20:00 12/12/20 05:22 Lorazepam (Ativan Inj) 4 mg PRN Q1HR PRN IV For CIWA 15 or greater 12/11/20 20:00 12/11/20 20:05 Haloperidol Lactate (Haldol Inj) 5 mg PRN Q4HRS PRN IVP Hallucinatns,Confusn,Delirium 12/11/20 20:00 12/11/20 21:05 Justifications for Admission Other Justification TARAS MORALES MD Dec 12, 2020 08:26
--- NOTE | 2020-12-12 10:04 | PDOC ---
Infectious Disease Note Subjective: Subjective Patient is sleepy Feels tired No other complaints Vital Signs: Vital Signs Vital Signs Date Time Temp Pulse Resp B/P (MAP) Pulse Ox O2 Delivery O2 Flow Rate FiO2 12/12/20 07:00 97.8 78 18 132/80 (97) 97 Room Air 97.8 Physical Exam: PHYSICAL EXAM GENERAL: The patient is in bed, alert, no distress. HEENT: Pupils equally round. Normal conjunctivae. Oropharynx pink, moist and edentulous. Bacterial overgrowth on tongue. NECK: Supple. LUNGS: Clear to auscultation. No accessory muscle use. HEART: Normal S1, S2 regular. ABDOMEN: Nondistended, soft, nontender with bowel sounds present. EXTREMITIES: No gross edema or cyanosis. SKIN: Warm to touch. No signs of rash. Multiple tattoos. NEUROLOGIC: Alert and answering questions appropriately. Medications: Inpatient Meds: Medications reviewed. Labs: Lab Laboratory Tests Test 12/12/20 05:25 12/12/20 05:28 White Blood Count 5.3 x10^3/uL (4.0-11.0) Red Blood Count 4.08 x10^6/uL (4.30-5.70) Hemoglobin 13.8 g/dL (13.0-17.5) Hematocrit 40.2 % (39.0-53.0) Mean Corpuscular Volume 99 fL (79-100) Mean Corpuscular Hemoglobin 34 pg (25-35) Mean Corpuscular Hemoglobin Concent 34 g/dL (31-37) Red Cell Distribution Width 13.3 % (11.5-14.5) Platelet Count 191 x10^3/uL (140-400) Neutrophils (%) (Auto) 45 % (31-73) Lymphocytes (%) (Auto) 38 % (24-48) Monocytes (%) (Auto) 7 % (0-9) Eosinophils (%) (Auto) 9 % (0-3) Basophils (%) (Auto) 1 % (0-3) Neutrophils # (Auto) 2.4 x10^3/uL (1.8-7.7) Lymphocytes # (Auto) 2.0 x10^3/uL (1.0-4.8) Monocytes # (Auto) 0.4 x10^3/uL (0.0-1.1) Eosinophils # (Auto) 0.5 x10^3/uL (0.0-0.7) Basophils # (Auto) 0.0 x10^3/uL (0.0-0.2) Sodium Level 144 mmol/L (136-145) Potassium Level 3.6 mmol/L (3.5-5.1) Chloride Level 110 mmol/L (98-107) Carbon Dioxide Level 28 mmol/L (21-32) Anion Gap 6 (6-14) Blood Urea Nitrogen 11 mg/dL (8-26) Creatinine 0.9 mg/dL (0.7-1.3) Estimated GFR (Cockcroft-Gault) 95.0 BUN/Creatinine Ratio 12 (6-20) Glucose Level 99 mg/dL (70-99) Calcium Level 7.8 mg/dL (8.5-10.1) Total Bilirubin 0.7 mg/dL (0.2-1.0) Aspartate Amino Transf (AST/SGOT) 94 U/L (15-37) Alanine Aminotransferase (ALT/SGPT) 154 U/L (16-63) Alkaline Phosphatase 74 U/L (46-116) Total Protein 5.6 g/dL (6.4-8.2) Albumin 2.8 g/dL (3.4-5.0) Albumin/Globulin Ratio 1.0 (1.0-1.7) Objective: Assessment: 1. Leukocytosis. Improved 2. Lactic acidosis. 3. Possible aspiration. 4. Mild sinus disease. 5. Alcohol and THC intoxication. 6. Vapes. 7. History of intravenous drug use. 8. Hepatitis C. 9. Homeless. Plan: Plan of Care Continue Jwn HESHAM vancomycin Monitor labs No cultures available Maintain aspiration precautions Discussed with nursing NAOMI GUZMAN MD Dec 12, 2020 10:04
--- NOTE | 2020-12-12 10:21 | NUR ---
SW following. Discussed with RN, pt homeless, room air, cardiac diet, COVID-19 negative. Pt currently on IV abx. BETH consulted for ETOH use/ abuse. Med Assist following for self pay status. MAK will continue to follow. Addendum: 12/12/20 at 1511 by DANIELA KINGSLEY SW David GOMEZ) met with pt, pt is from [place], was provided resources for [facility] and [facility] [place]. Pt reporting he does not need any services at this time.
[2020-12-12 11:01] VITALS: BP 153/96
[2020-12-12] MEDS: ACETAMINOPHEN 325 MG TABLET. PO PRN (12:17)
[2020-12-12 15:00] VITALS: BP 123/75
--- NOTE | 2020-12-12 16:24 | NUR ---
CIWA 1600 assessment, pt asleep during assessment, unable to assess at this time. Addendum: 12/12/20 at 1626 by TALAT SHARP LPN LPN Amended: Links added.
[2020-12-12 19:00] VITALS: BP 136/86
[2020-12-12] MEDS: HALOPERIDOL LACTATE 5 MG/ML VIAL. IVP PRN (20:34)
[2020-12-12] MEDS ORDERED: ZOLPIDEM 5 MG TABLET. PO PRN (21:00)
[2020-12-12] MEDS: LACTOBACILLUS RHAMNOSUS GG 1 CAPSULE. PO SCH (21:10)
--- NOTE | 2020-12-13 02:39 | NUR ---
patient has numerous episode of severe agitation ,looking for his personal belongings and wanting to smoke, juan daniel melton was called, medicated per Doctor's order.
[2020-12-13] MEDS: PIPERACILLIN/TAZOBACTAM 3.375 GM in IV NORMAL SALINE 50ML 50 ML IV SCH (05:15)
[2020-12-13 07:00] VITALS: BP 147/99
--- NOTE | 2020-12-13 08:45 | PDOC ---
[employer] PROGRESS NOTE Date of Service DOS: DATE: 12/13/20 TIME: 08:39 Chief Complaint Chief Complaint Sepsis Atypical pneumonia, possible gram-negative organisms Acute alcohol and THC intoxication Mild hypokalemia Transaminitis Lactic acidosis Reactive leukocytosis Admit to medicine for observation PAT consult Continue IV fluids Continue empiric IV antibiotics History of Present Illness History of Present Illness 35 year old male who presents with who states that tonight he took a shot of THC because the glass broke and he did not wanted to waste. He is having palpitations and in the ED his heart rate is in the 130s. Patient denies chest pain, shortness of air, abdominal pain, dizziness, headache, nausea, vomiting, diarrhea, focal weakness, numbness or tingling. He denies any pain at this time. He does admit to drinking alcohol. ED course: poison control contacted and recommended to just observe the patient. Alert and oriented x4 but is drowsy. Speaks in full clear sentences. Lungs are clear all station all lobes. Skin pink warm and dry. EKG shows sinus tachycardia. Patient denies any pain, back pain, neck pain. He has full range of motion of his neck. White blood cell count elevated. Alcohol level is 267. Patient took the shot of THC at 1800 tonight. Lactic acid is 4.5. Patient is given 2 L normal saline and some Zosyn 12/12/2020 Afebrile, breathing room air. Lactic acidosis and leukocytosis have resolved. COVID-19 negative. Will continue Zosyn; DC vancomycin. Blood cultures still pending. Patient does report multiple episodes of diarrhea today. Will obtain C. difficile. I imagine he may discharge once blood cultures have resulted negative, given his medical history. 12/13/2020 Afebrile. Breathing on room air, denies any complaints of shortness of breath. Still with diarrhea. C. difficile still pending at this time. Zosyn d/c'd, per ID. If blood cultures and C. difficile return negative, may discharge home with self-care. Vitals/I&O Vitals/I&O: Vital Signs Date Time Temp Pulse Resp B/P (MAP) Pulse Ox O2 Delivery O2 Flow Rate FiO2 12/13/20 07:00 97.6 82 17 147/99 (115) 98 Room Air 97.6 I & O 412/12/20 12/13/20 15:00 23:00 07:00 Intake Total 200 ml Balance 200 ml Physical Exam Physical Exam: GENERAL: The patient is in bed, alert, no distress. HEENT: Pupils equally round. Normal conjunctivae. Oropharynx pink, moist and edentulous. Bacterial overgrowth on tongue. NECK: Supple. LUNGS: Clear to auscultation. No accessory muscle use. HEART: Normal S1, S2 regular. ABDOMEN: Nondistended, soft, nontender with bowel sounds present. EXTREMITIES: No gross edema or cyanosis. SKIN: Warm to touch. No signs of rash. Multiple tattoos. NEUROLOGIC: Alert and answering questions appropriately. General: Alert, Oriented X3 Heart: Regular rate Lungs: Clear Abdomen: Soft, No tenderness Extremities: No clubbing, No cyanosis Skin: No rashes, No breakdown Assessment and Plan Assessmemt and Plan Problems Medical Problems: (1) Alcohol intoxication Status: Acute (2) Sepsis Status: Acute (3) Tetrahydrocannabinol (THC) dependence Status: Acute Comment Review of Relevant I have reviewed the following items guillermina (where applicable) has been applied. Medications: Current Medications Medications (Trade) Dose Ordered Sig/Karon Route PRN Reason Start Time Stop Time Status Last Admin Dose Admin Lactobacillus Rhamnosus (Culturelle) 1 cap BID PO 12/12/20 21:00 12/12/20 21:10 Zolpidem Tartrate (Ambien) 5 mg PRN QHS PRN PO INSOMNIA 12/12/20 21:00 12/12/20 21:14 Justifications for Admission Other Justification TARAS MORALES MD Dec 13, 2020 08:44
[2020-12-13] MEDS: LACTOBACILLUS RHAMNOSUS GG 1 CAPSULE. PO SCH (09:00)
--- NOTE | 2020-12-13 09:03 | PDOC ---
Infectious Disease Note Subjective: Subjective Patient is sleepy Has intermittent loose bowel movement No other complaints Vital Signs: Vital Signs Vital Signs Date Time Temp Pulse Resp B/P (MAP) Pulse Ox O2 Delivery O2 Flow Rate FiO2 12/13/20 07:00 97.6 82 17 147/99 (115) 98 Room Air 97.6 Physical Exam: PHYSICAL EXAM GENERAL: The patient is in bed, alert, no distress. HEENT: Pupils equally round. Normal conjunctivae. Oropharynx pink, moist and edentulous. Bacterial overgrowth on tongue. NECK: Supple. LUNGS: Clear to auscultation. No accessory muscle use. HEART: Normal S1, S2 regular. ABDOMEN: Nondistended, soft, nontender with bowel sounds present. EXTREMITIES: No gross edema or cyanosis. SKIN: Warm to touch. No signs of rash. Multiple tattoos. NEUROLOGIC: Alert and answering questions appropriately. Medications: Inpatient Meds: Medications reviewed. Objective: Assessment: 1. Leukocytosis. Improved 2. Lactic acidosis. 3. Possible aspiration. 4. Mild sinus disease. 5. Alcohol and THC intoxication. 6. Vapes. 7. History of intravenous drug use. 8. Hepatitis C. 9. Homeless. Plan: Plan of Care DC Zosyn Off Vanc F/U C diff PCR Monitor labs No cultures available Low threshold to restart Zosyn if has temperature greater than 101 F or hemody namic instability Maintain aspiration precautions Discussed with nursing NAOMI GUZMAN MD Dec 13, 2020 09:03
--- NOTE | 2020-12-13 09:49 | NUR ---
Unable to assess patient for 0800 nafisa NAIK. Addendum: 12/13/20 at 0952 by TALAT SHARP LPN LPN Amended: Links added.
[2020-12-13 10:31] LABS: BASO # 0.1 x10^3/uL (0.0-0.2); BASO % 1 % (0-3); EOS # 0.6 x10^3/uL (0.0-0.7); EOS % 9 % (0-3); HEMATOCRIT 42.5 % (39.0-53.0); HEMOGLOBIN 14.8 g/dL (13.0-17.5); LYMPH # 1.7 x10^3/uL (1.0-4.8); LYMPH % 26 % (24-48); MEAN CORPUSCULAR HEMOGLOBIN 34 pg (25-35); MEAN CORPUSCULAR HGB CONC 35 g/dL (31-37); MEAN CORPUSCULAR VOLUME 97 fL (79-100); MONO # 0.4 x10^3/uL (0.0-1.1); MONO % 6 % (0-9); NEUT # 3.7 x10^3/uL (1.8-7.7); NEUT % 58 % (31-73); PLATELET COUNT 179 x10^3/uL (140-400); RED BLOOD COUNT 4.37 x10^6/uL (4.30-5.70); RED CELL DISTRIBUTION WIDTH 13.1 % (11.5-14.5); WHITE BLOOD COUNT 6.3 x10^3/uL (4.0-11.0)
[2020-12-13 10:34] LABS: CALCIUM 8.7 mg/dL (8.5-10.1); CREATININE 0.8 mg/dL (0.7-1.3); GFR 108.8; POTASSIUM 3.6 mmol/L (3.5-5.1)
[2020-12-13 11:00] VITALS: BP 134/89
[2020-12-13] MEDS: ACETAMINOPHEN 325 MG TABLET. PO PRN (13:22)
--- NOTE | 2020-12-13 14:40 | NUR ---
SW following. Discussed with RN, pt from [place], room air, cardiac diet, COVID-19 negative. Pt agitated last night resulting in a code gilmore. Med Assist following for self pay status. Pt cleared by the PAT team. SW will continue to follow.
--- NOTE | 2020-12-13 15:29 | NUR ---
Pt. stated he wanted to leave [facility], Dr. Lopez notified, no new orders received. Pt.walked out per security and EDITH Cordova. Pt. did not give a specific reason, he only stated it was too hot in here.
--- NOTE | 2020-12-13 15:29 | PDOC3 ---
Discharge Summary Visit Information Date of Admission: Dec 11, 2020 Date of Discharge: Dec 13, 2020 Final Diagnosis Problems Medical Problems: (1) Alcohol intoxication Status: Acute (2) Sepsis Status: Acute (3) Tetrahydrocannabinol (THC) dependence Status: Acute Brief Hospital Course Allergies Allergies Coded Allergies Type Severity Reaction Last Updated Verified No Known Drug Allergies 12/10/20 No Vital Signs Vital Signs Date Time Temp Pulse Resp B/P (MAP) Pulse Ox O2 Delivery O2 Flow Rate FiO2 12/13/20 11:00 98.2 75 17 134/89 (104) 96 Room Air 98.2 Lab Results Laboratory Tests Test 12/12/20 05:25 12/12/20 05:28 12/13/20 10:15 White Blood Count 5.3 x10^3/uL (4.0-11.0) 6.3 x10^3/uL (4.0-11.0) Red Blood Count 4.08 x10^6/uL (4.30-5.70) 4.37 x10^6/uL (4.30-5.70) Hemoglobin 13.8 g/dL (13.0-17.5) 14.8 g/dL (13.0-17.5) Hematocrit 40.2 % (39.0-53.0) 42.5 % (39.0-53.0) Mean Corpuscular Volume 99 fL (79-100) 97 fL (79-100) Mean Corpuscular Hemoglobin 34 pg (25-35) 34 pg (25-35) Mean Corpuscular Hemoglobin Concent 34 g/dL (31-37) 35 g/dL (31-37) Red Cell Distribution Width 13.3 % (11.5-14.5) 13.1 % (11.5-14.5) Platelet Count 191 x10^3/uL (140-400) 179 x10^3/uL (140-400) Neutrophils (%) (Auto) 45 % (31-73) 58 % (31-73) Lymphocytes (%) (Auto) 38 % (24-48) 26 % (24-48) Monocytes (%) (Auto) 7 % (0-9) 6 % (0-9) Eosinophils (%) (Auto) 9 % (0-3) 9 % (0-3) Basophils (%) (Auto) 1 % (0-3) 1 % (0-3) Neutrophils # (Auto) 2.4 x10^3/uL (1.8-7.7) 3.7 x10^3/uL (1.8-7.7) Lymphocytes # (Auto) 2.0 x10^3/uL (1.0-4.8) 1.7 x10^3/uL (1.0-4.8) Monocytes # (Auto) 0.4 x10^3/uL (0.0-1.1) 0.4 x10^3/uL (0.0-1.1) Eosinophils # (Auto) 0.5 x10^3/uL (0.0-0.7) 0.6 x10^3/uL (0.0-0.7) Basophils # (Auto) 0.0 x10^3/uL (0.0-0.2) 0.1 x10^3/uL (0.0-0.2) Sodium Level 144 mmol/L (136-145) 141 mmol/L (136-145) Potassium Level 3.6 mmol/L (3.5-5.1) 3.6 mmol/L (3.5-5.1) Chloride Level 110 mmol/L (98-107) 105 mmol/L (98-107) Carbon Dioxide Level 28 mmol/L (21-32) 29 mmol/L (21-32) Anion Gap 6 (6-14) 7 (6-14) Blood Urea Nitrogen 11 mg/dL (8-26) 9 mg/dL (8-26) Creatinine 0.9 mg/dL (0.7-1.3) 0.8 mg/dL (0.7-1.3) Estimated GFR (Cockcroft-Gault) 95.0 108.8 BUN/Creatinine Ratio 12 (6-20) Glucose Level 99 mg/dL (70-99) 108 mg/dL (70-99) Calcium Level 7.8 mg/dL (8.5-10.1) 8.7 mg/dL (8.5-10.1) Total Bilirubin 0.7 mg/dL (0.2-1.0) Aspartate Amino Transf (AST/SGOT) 94 U/L (15-37) Alanine Aminotransferase (ALT/SGPT) 154 U/L (16-63) Alkaline Phosphatase 74 U/L (46-116) Total Protein 5.6 g/dL (6.4-8.2) Albumin 2.8 g/dL (3.4-5.0) Albumin/Globulin Ratio 1.0 (1.0-1.7) Laboratory Tests Test 12/13/20 10:15 White Blood Count 6.3 x10^3/uL (4.0-11.0) Red Blood Count 4.37 x10^6/uL (4.30-5.70) Hemoglobin 14.8 g/dL (13.0-17.5) Hematocrit 42.5 % (39.0-53.0) Mean Corpuscular Volume 97 fL (79-100) Mean Corpuscular Hemoglobin 34 pg (25-35) Mean Corpuscular Hemoglobin Concent 35 g/dL (31-37) Red Cell Distribution Width 13.1 % (11.5-14.5) Platelet Count 179 x10^3/uL (140-400) Neutrophils (%) (Auto) 58 % (31-73) Lymphocytes (%) (Auto) 26 % (24-48) Monocytes (%) (Auto) 6 % (0-9) Eosinophils (%) (Auto) 9 % (0-3) Basophils (%) (Auto) 1 % (0-3) Neutrophils # (Auto) 3.7 x10^3/uL (1.8-7.7) Lymphocytes # (Auto) 1.7 x10^3/uL (1.0-4.8) Monocytes # (Auto) 0.4 x10^3/uL (0.0-1.1) Eosinophils # (Auto) 0.6 x10^3/uL (0.0-0.7) Basophils # (Auto) 0.1 x10^3/uL (0.0-0.2) Sodium Level 141 mmol/L (136-145) Potassium Level 3.6 mmol/L (3.5-5.1) Chloride Level 105 mmol/L (98-107) Carbon Dioxide Level 29 mmol/L (21-32) Anion Gap 7 (6-14) Blood Urea Nitrogen 9 mg/dL (8-26) Creatinine 0.8 mg/dL (0.7-1.3) Estimated GFR (Cockcroft-Gault) 108.8 Glucose Level 108 mg/dL (70-99) Calcium Level 8.7 mg/dL (8.5-10.1) Brief Hospital Course Mr. Turner is a 35 old male who presented with possible aspiration pneumonia, possible C. difficile, EtOH and THC intoxication. Consult placed to ID. He was treated with broad antibiotics and alcohol withdrawal protocol. He improved with our medical management but developed diarrhea while inpatient and C. diff PCR was ordered. C. diff was still pending at the time he left AMA. Risks of leaving AMA were discussed with patient, including overwhelming infection that could lead to possible if left untreated, he was A&O x 3 but left AMA. Discharge Information Condition at Discharge: Stable Disposition/Orders: Other Justicifation of Admission Dx: Justifications for Admission: Justification of Admission Dx: Yes (Aspiration PNA) TARAS MORALES MD Dec 13, 2020 15:29
[2020-12-16] MEDS ORDERED: THIAMINE 100 MG TABLET. PO SCH (09:00)
[2020-12-16] MEDS ORDERED: FOLIC ACID 1 MG TABLET. PO SCH (09:00)
== END 2020-12-13 15:20 | disposition left against medical advice (07) | DRG 871 ==
LOC: ER 18:47 → 4 NORTH 22:46 → ED HOLD 23:14 → 4 NORTH 12-11 15:40
PROVIDERS: ADMIT Internal Medicine; ATTEND Internal Medicine
DX: A41.9 Sepsis, unspecified organism (principal); J69.0 Pneumonitis due to inhalation of food and vomit; E87.2 Acidosis; F12.229 Cannabis dependence with intoxication, unspecified; F10.120 Alcohol abuse with intoxication, uncomplicated; E87.6 Hypokalemia; Z20.822 Contact with and (suspected) exposure to COVID-19; B19.20 Unspecified viral hepatitis C without hepatic coma; K76.0 Fatty (change of) liver, not elsewhere classified; Z82.49 Family history of ischemic heart disease and other diseases of the circulatory system; Z91.81 History of falling; Z59.0 Homelessness; Z53.29 Procedure and treatment not carried out because of patient's decision for other reasons
CPT/HCPCS: 36415; 70450; 71045; 74177; 80048; 80053; 80307; 80329; 81001; 82550; 83605; 83690; 83735; 84484; 85007; 85025; 93005; 99285; G0480; J1630; J2060; J2543; J3370; J7030; J7040; J7050; U0003; U0005; G0378